=== PATIENT | female | born 2000 | race Caucasian/White ===

== ENCOUNTER 2018-10-11 20:31 | Emergency (ER) | payer OTHER ==
[2018-10-11 21:34] LABS: BILIRUBIN,URINE NEGATIVE (NEGATIVE); GLUCOSE, URINE (UA) NEGATIVE (NEGATIVE); KETONES,URINE (UA) NEGATIVE (NEGATIVE); LEUKOCYTE ESTERASE, URINE SMALL (NEGATIVE); NITRITE,URINE NEGATIVE (NEGATIVE); OCCULT BLOOD,URINE TRACE-INTA (NEGATIVE); PH,URINE 8.5 PH (5.0-7.5); PROTEIN,URINE NEGATIVE (NEGATIVE); UROBILINOGEN,URINE 0.2 (NORMAL) E.U./dL (NORMAL)
[2018-10-11 21:42] LABS: BACTERIA,URINE Many /HPF (None Seen); CLARITY,URINE CLOUDY (CLEAR); RBC,URINE 0-5 /HPF (0-5); SQUAMOUS EPITHELIAL CELL,UR FEW Squamous (<= Few)
[2018-10-11 21:43] LABS: AMORPHOUS SEDIMENT,UR Moderate /LPF
[2018-10-11 22:10] VITALS: BP 123/75
--- NOTE | 2018-10-11 22:10 | ED Physician Documentation ---
PD HPI FEMALE - Stated complaint Stated Complaint: UTI - Chief complaint Chief Complaint: UTI - History obtained from History obtained from: Patient - History of Present Illness Timing - onset: How many days ago (2) Timing - duration: Days (2) Timing - details: Gradual onset, Still present Associated symptoms: Fever (felt mild feverish), Dysuria, Urinary frequency. No: Vaginal discharge, Genital sore/lesion Contributing factors: No: Exposed to STD Similar symptoms before: Diagnosis (UTI) Recently seen: Not recently seen Review of Systems Constitutional: reports: Fever. denies: Myalgias Nose: denies: Rhinorrhea / runny nose, Congestion Throat: denies: Sore throat Respiratory: denies: Cough : reports: Dysuria, Frequency. 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 : None HEENT: None Psych: None Musculoskeletal: None Derm: None - Past Surgical History Past Surgical History: No - Present Medications Home Medications: Ambulatory Orders Medication Instructions Recorded Confirmed Medroxyprogesterone Acetate 150 mg IM ONCE 10/11/18 10/11/18 [Depo-Provera] Phenazopyridine HCl [Pyridium] 200 mg PO TID PRN #6 tablet 10/11/18 Pnv No.122/Iron/Folic Acid 1 each PO DAILY 10/11/18 10/11/18 [ Multi Tablet] Sulfamethox/Trimeth 800/160 1 each PO BID #10 tablet 10/11/18 [Bactrim Ds 800/160] - Allergies Allergies/Adverse Reactions: Allergies Allergy/AdvReac Type Severity Reaction Status Date / Time No Known Drug Allergies Allergy Verified 10/11/18 22:10 - Social History Does the pt smoke?: Yes Smoking Status: Current every day smoker Does the pt drink ETOH?: No Does the pt have substance abuse?: No - Immunizations Immunizations are current?: Yes PD ED PE NORMAL - Vitals Vital signs reviewed: Yes - General General: Alert and oriented X 3, No acute distress, Well developed/nourished - Abdomen Abdomen: Soft, Non tender - Female Female : Deferred - Back Back: No CVA TTP - Derm Derm: Normal color, Warm and dry - Neuro Neuro: Alert and oriented X 3, No motor deficit, Normal speech Results - Vitals Vitals: Oxygen O2 Source Room air - Labs Labs: Microbiology 10/11/18 20:35 Urine Culture - Preliminary Urine,Clean Catch Escherichia Coli Laboratory Tests 10/11/18 20:35 Urine Color YELLOW Urine Clarity CLOUDY Urine pH 8.5 H Ur Specific [place] 1.015 Urine Protein NEGATIVE Urine Glucose (UA) NEGATIVE Urine Ketones NEGATIVE Urine Occult Blood TRACE-INTA Urine Nitrite NEGATIVE Urine Bilirubin NEGATIVE Urine Urobilinogen 0.2 (NORMAL) Ur Leukocyte Esterase SMALL H Urine RBC 0-5 Urine WBC 11-25 H Ur Squamous Epith Cells FEW Squamous Amorphous Sediment Moderate Urine Bacteria Many H Ur Microscopic Review INDICATED Urine Culture Comments INDICATED PD MEDICAL DECISION MAKING - ED course Complexity details: considered differential (UTI symptoms and denies vaginal discharge. UA is positive enough to correlate with symptoms. ), d/w patient Departure - Departure Disposition: Home, Self Care Clinical Impression: Urinary tract infection Qualifiers: Urinary tract infection type: acute cystitis Hematuria presence: without hematuria Qualified Code(s): N30.00 - Acute cystitis without hematuria Condition: Stable Record reviewed to determine appropriate education?: Yes Instructions: ED UTI Cystitis Female Follow-Up: GENE RODRIGUEZ [Primary Care Provider] - Prescriptions: Phenazopyridine HCl [Pyridium] 200 mg PO TID PRN #6 tablet PRN Reason: dysuria Sulfamethox/Trimeth 800/160 [Bactrim Ds 800/160] 1 each PO BID #10 tablet Comments: Stay well-hydrated. Ibuprofen or Tylenol as needed for pains. Phenazopyridine can help with the urinary discomfort. It will turn your urine orange colored so not to worry. Bactrim antibiotic twice daily for 5 days is typically adequate timing for clearing of bladder infection. Recheck if not improved over the next few days. Discharge Date/Time: 10/11/18 22:37
[2018-10-11] MEDS ORDERED: PHENAZOPYRIDINE 100 MG TABLET PO STA (22:23)
[2018-10-11] MEDS ORDERED: SULFAMETH/TRIMETH DS 800/160 MG TABLET PO STA (22:23)
== END 2018-10-11 22:37 | disposition home or self-care (01) ==
LOC: ED 20:31
DX: N30.00 Acute cystitis without hematuria (principal); F17.200 Nicotine dependence, unspecified, uncomplicated
CPT/HCPCS: 81001; 87086; 87181; 99283; A9270; 81003

== ENCOUNTER 2022-04-14 22:19 | Emergency (ER) | payer OTHER ==
--- NOTE | 2022-04-14 22:53 | ED Physician Documentation ---
History of Present Illness - Stated complaint Stated Complaint: CHEST PX,BLOOD IN STOOL - Chief complaint Chief Complaint: Cardiac - History obtained from History obtained from: Patient - History of Present Illness Timing: Yesterday - Additonal information Additional information: 21-year-old female presents for several complaints. Patient complains of episode of bright red blood in her stool yesterday, fatigue, headache, and chest pain. Patient states that her only complaint today is the chest pain. Pain is sharp, suprasternal, intermittent, associated sharp pain in her left forearm. When she first felt the pain she went to go lay down and felt fatigued with a low-grade throbbing headache. All other symptoms resolved, however the chest pain persisted, prompting her visit to the ER. Patient does state that she has a history of hemorrhoids. Bowel movement today was normal. Review of Systems Ten Systems: 10 systems reviewed and negative Constitutional: reports: Fatigue. denies: Fever, Chills Cardiac: reports: Chest pain / pressure. denies: Palpitations Respiratory: denies: Dyspnea, Cough GI: reports: Bloody / black stool. 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 : None HEENT: None Psych: Anxiety Musculoskeletal: None Derm: None - Past Surgical History Past Surgical History: Yes - Allergies Allergies/Adverse Reactions: Allergies Allergy/AdvReac Type Severity Reaction Status Date / Time No Known Drug Allergies Allergy Verified 04/14/22 22:31 - Social History Does the pt smoke?: Yes Smoking Status: Current every day smoker Does the pt drink ETOH?: No Does the pt have substance abuse?: No - Immunizations Immunizations are current?: Yes PD ED PE NORMAL - Vitals Vital signs reviewed: Yes - General General: Alert and oriented X 3, No acute distress, Well developed/nourished - HEENT HEENT: Atraumatic, PERRL, EOMI, Ears normal, Moist mucous membranes - Neck Neck: Supple, no meningeal sign, No bony TTP, No adenopathy - Cardiac Cardiac: RRR, No gallop, No rub, Strong equal pulses - Respiratory Respiratory: No respiratory distress, Clear bilaterally - Abdomen Abdomen: Soft, Non tender, Non distended, No organomegaly - Female Female : Deferred - Rectal Rectal: Other (shrimp header present. 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, No motor deficit, No sensory deficit, Normal speech - Psych Psych: Normal mood, Normal affect Results - Vitals Vitals: Vital Signs - 24 hr 04/14/22 04/14/22 22:25 23:49 Temperature 36.3 C L Heart Rate 92 61 Respiratory 18 18 Rate Blood Pressure 122/68 113/56 L O2 Saturation 99 97 Oxygen O2 Source Room air - EKG (time done) 2226 Rate: Rate (enter#) (94) Rhythm: NSR, Wide complex tachycardia Intervals: Normal ME QRS: Normal Ischemia: Normal ST segments - Labs Labs: Laboratory Tests 04/14/22 04/14/22 23:05 23:05 WBC 6.8 RBC 4.19 L Hgb 13.0 Hct 38.4 MCV 91.6 MCH 31.0 MCHC 33.9 RDW 11.9 L Plt Count 290 MPV 9.7 Neut # (Auto) 4.1 Lymph # (Auto) 1.7 [place] # (Auto) 0.7 Eos # (Auto) 0.2 Baso # (Auto) 0.0 Absolute Nucleated RBC 0.00 Nucleated RBC % 0.0 Sodium 138 Potassium 3.8 Chloride 105 Carbon Dioxide 24 Anion Gap 9.0 BUN 18 Creatinine 0.8 Estimated GFR (MDRD) 89 Glucose 96 Calcium 9.0 Total Bilirubin 0.6 AST 16 ALT 14 Alkaline Phosphatase 47 Total Protein 7.1 Albumin 4.1 Globulin 3.0 Albumin/Globulin Ratio 1.4 PD MEDICAL DECISION MAKING - ED course ED course: Patient with numerous various symptoms. Currently only endorsing chest pain. EKG and troponin negative. Chest x-ray unremarkable. Patient reports episode of blood in stool, does have hemorrhoids. Abdomen soft, no reproducible TTP. Blood count within normal limits. No further episodes of bleeding since yesterday, stool is back to normal per pt and she is not on any blood thinners. Patient was informed of her results, counseled PCP follow-up. Counseled Tylenol and Motrin as needed for chest pains. Departure - Departure Disposition: 01 Home, Self Care Clinical Impression: Chest pain Qualifiers: Chest pain type: unspecified Qualified Code(s): R07.9 - Chest pain, unspecified Hemorrhoid Qualifiers: Hemorrhoid type: first degree Qualified Code(s): K64.0 - First degree hemorrhoids Fatigue Qualifiers: Fatigue type: other Qualified Code(s): R53.83 - Other fatigue Instructions: ED Chest Pain NonCardiac, ED Hemorrhoids Comments: I do not know the cause of your symptoms today. Your blood count is normal, your EKG is normal, your chest x-ray shows no evidence of pneumonia or other heart problems. Take Tylenol and Motrin as needed for pain or discomfort. Drink plenty of fluids, get plenty of rest. Follow-up with your primary care physician if your symptoms continue. Discharge Date/Time: 04/14/22 23:54
[2022-04-14 23:10] LABS: BASOPHILS % (AUTO) 0.6 %; EOSINOPHILS # (AUTO) 0.2 10^3/uL (0.0-0.7); EOSINOPHILS % (AUTO) 2.5 %; HCT - HEMATOCRIT 38.4 % (37.0-47.0); LYMPHOCYTES # (AUTO) 1.7 10^3/uL (1.5-3.5); MEAN CORPUSCULAR HGB CONC 33.9 g/dL (32.0-36.0); MEAN CORPUSCULAR VOLUME 91.6 fL (81.0-99.0); MEAN PLATELET VOLUME 9.7 fL (7.9-10.8); MONOCYTES # (AUTO) 0.7 10^3/uL (0.0-1.0); MONOCYTES % (AUTO) 10.8 %; NEUTROPHILS # (AUTO) 4.1 10^3/uL (1.5-6.6); NEUTROPHILS % (AUTO) 60.8 %; PLT - PLATELET COUNT 290 10^3/uL (130-450); RED BLOOD COUNT 4.19 10^6/uL (4.20-5.40); RED CELL DISTRIBUTION WIDTH 11.9 % (12.0-15.0); WHITE BLOOD COUNT 6.8 x10^3/uL (4.8-10.8)
[2022-04-14 23:22] LABS: ALBUMIN 4.1 g/dL (3.2-5.5); ALBUMIN/GLOBULIN RATIO 1.4 (1.0-2.2); BILIRUBIN,TOTAL 0.6 mg/dL (0.2-1.0); CREATININE 0.8 mg/dL (0.4-1.0); POTASSIUM 3.8 mmol/L (3.5-5.0); TOTAL PROTEIN 7.1 g/dL (6.7-8.2)
--- NOTE | 2022-04-14 23:40 | XRAY Report ---
PROCEDURE: Chest 1 View X-Ray INDICATIONS: CP TECHNIQUE: One view of the chest was acquired. COMPARISON: None. FINDINGS: Surgical changes and devices: None. Lungs and pleura: No pleural effusions or pneumothorax. Lungs are clear. Mediastinum: Mediastinal contours appear normal. Heart size is normal. Bones and chest wall: No suspicious bony lesions. Overlying soft tissues appear unremarkable. IMPRESSION: No acute cardiopulmonary process demonstrated radiographically. Reviewed by: Jerson Mcclain MD on 04/14/2022 11:38 PM PDT Approved by: Jerson Mcclain MD on 04/14/2022 11:38 PM PDT Station ID: [id number]
[2022-04-14 23:50] VITALS: BP 113/56
== END 2022-04-14 23:54 | disposition home or self-care (01) ==
LOC: ED 22:19
DX: K64.0 First degree hemorrhoids (principal); R53.83 Other fatigue; R07.9 Chest pain, unspecified; F17.200 Nicotine dependence, unspecified, uncomplicated
CPT/HCPCS: 36415; 80053; 85025; 93005; 99282; 99284

== ENCOUNTER 2024-01-05 14:38 | Outpatient (CLI) | payer OTHER ==
[2024-01-05 15:16] LABS: BASOPHILS # (AUTO) 0.1 10^3/uL (0.0-0.1); BASOPHILS % (AUTO) 0.5 %; EOSINOPHILS # (AUTO) 0.2 10^3/uL (0.0-0.7); EOSINOPHILS % (AUTO) 1.5 %; HCT - HEMATOCRIT 38.5 % (37.0-47.0); HGB - HEMOGLOBIN 12.5 g/dL (12.0-16.0); LYMPHOCYTES # (AUTO) 2.7 10^3/uL (1.5-3.5); LYMPHOCYTES % (AUTO) 24.2 %; MEAN CORPUSCULAR HEMOGLOBIN 30.3 pg (27.0-31.0); MEAN CORPUSCULAR HGB CONC 32.5 g/dL (32.0-36.0); MEAN CORPUSCULAR VOLUME 93.4 fL (81.0-99.0); MONOCYTES # (AUTO) 0.9 10^3/uL (0.0-1.0); MONOCYTES % (AUTO) 8.5 %; NEUTROPHILS # (AUTO) 7.1 10^3/uL (1.5-6.6); PLT - PLATELET COUNT 303 10^3/uL (130-450); RED BLOOD COUNT 4.12 10^6/uL (4.20-5.40); RED CELL DISTRIBUTION WIDTH 12.2 % (12.0-15.0); WHITE BLOOD COUNT 10.9 x10^3/uL (4.8-10.8)
[2024-01-06 04:09] LABS: HBsAG SCREEN Negative (Negative)
[2024-01-06 06:11] LABS: HIV SCREEN 4TH GENERATION Non Reactive (Non Reactive); RPR Non Reactive (Non Reactive)
[2024-01-06 12:09] LABS: VARICELLA-ZOSTER AB IGG 427 index (Immune >165)
[2024-01-08 00:08] LABS: HCV AB Non Reactive (Non Reactive)
== END 2024-01-05 14:39 | disposition home or self-care (01) ==
LOC: LAB 14:38
PROVIDERS: ATTEND Nurse Practitioner
DX: Z34.00 Encounter for supervision of normal first pregnancy, unspecified trimester (principal); Z36.89 Encounter for other specified antenatal screening
CPT/HCPCS: 36415; 84702; 85025; 86592; 86762; 86787; 86803; 86850; 86900; 86901; 87340; 87389

== ENCOUNTER 2024-01-06 08:00 | Outpatient (CLI) | payer OTHER ==
[2024-01-06 08:40] LABS: BILIRUBIN,URINE NEGATIVE (NEGATIVE); CLARITY,URINE CLEAR (CLEAR); GLUCOSE, URINE (UA) NEGATIVE (NEGATIVE); KETONES,URINE (UA) NEGATIVE (NEGATIVE); LEUKOCYTE ESTERASE, URINE NEGATIVE (NEGATIVE); NITRITE,URINE NEGATIVE (NEGATIVE); OCCULT BLOOD,URINE NEGATIVE (NEGATIVE); PROTEIN,URINE NEGATIVE (NEGATIVE); UROBILINOGEN,URINE 0.2 (NORMAL) E.U./dL (NORMAL)
[2024-01-06 09:19] LABS: WBC,URINE 0-3 /HPF (0-5)
[2024-01-06 09:20] LABS: BACTERIA,URINE Few /HPF (None Seen); RBC,URINE 0-5 /HPF (0-5); SQUAMOUS EPITHELIAL CELL,UR FEW Squamous (<= Few)
== END 2024-01-06 23:59 | disposition home or self-care (01) ==
LOC: LAB.WC 08:00
PROVIDERS: ATTEND Nurse Practitioner
DX: Z34.00 Encounter for supervision of normal first pregnancy, unspecified trimester (principal)
CPT/HCPCS: 81001; 87086

== ENCOUNTER 2024-01-06 14:13 | Outpatient (CLI) | payer OTHER ==
--- NOTE | 2024-01-06 16:55 | Ultrasound Report ---
PROCEDURE: OB 1st Trimester w/TV INDICATIONS: POSITIVE TEST OUTSIDE/PRIOR DATING DATA: Last menstrual period (LMP): 11/20/2023. LMP-based estimated date of delivery (VIKI): 08/26/2024. First dating scan (date and location): 01/06/2024. Estimated date of delivery (VIKI) from first dating scan: 09/02/2024. TECHNIQUE: Real-time scanning was performed of the fetus and maternal pelvic organs, with image documentation. Endovaginal scanning was also performed to better visualize the fetus and maternal ovaries. COMPARISON: None. FINDINGS: Yolk sac present. Embryo: 0.21 cm, 5 weeks 5 days Heart rate: 155 bpm. Other: No perigestational fluid collection. Measurement variability in dating: +/- 4 weeks by LMP, +/- 7 days by mean sac diameter (use before 6 weeks gestation if crown-rump length not able to be measured), +/- 5 days by crown-rump length (6-12 weeks gestation). Maternal organs: Ovaries appear within normal limits. There is a right ovarian corpus luteal cyst me asuring 1.8 x 2.0 x 1.6 cm. IMPRESSION: Very early intrauterine with crown-rump length and heartbeat measuring 5 weeks days. Reviewed by: Garcia Phan MD on 01/06/2024 4:54 PM PDT Approved by: Garcia Phan MD on 01/06/2024 4:54 PM PDT Station ID: [id number]
== END 2024-01-06 14:14 | disposition home or self-care (01) ==
LOC: DI 14:13
PROVIDERS: ATTEND Nurse Practitioner
DX: Z34.01 Encounter for supervision of normal first pregnancy, first trimester (principal)

== ENCOUNTER 2024-09-07 04:08 | Inpatient (IN) ==
[2024-09-07] MEDS ORDERED: LACTATED RINGERS 1,000 ML ONE (04:26)
[2024-09-07] MEDS ORDERED: lidocaine 1% 20 ML MDV ID PRN (04:33)
[2024-09-07] MEDS ORDERED: miSOPROStoL 200 MCG TABLET BC PRN (04:33)
[2024-09-07] MEDS ORDERED: miSOPROStoL 200 MCG TABLET PR PRN (04:33)
[2024-09-07] MEDS ORDERED: LABETALOL 20 MG/4 ML SYRINGE IVP PRN ×5 (04:33→13:41)
[2024-09-07] MEDS ORDERED: hydrALAZINE INJ 20 MG/ML VIAL IVP PRN ×3 (04:33→13:41)
[2024-09-07] MEDS ORDERED: fentaNYL 100 MCG/2 ML VIAL IVP PRN (04:33)
[2024-09-07] MEDS ORDERED: SODIUM CHLORIDE FLUSH 0.9% 10 ML SYRINGE IVP PRN (04:33)
[2024-09-07] MEDS ORDERED: OXYTOCIN 10 UNIT/ML VIAL IM PRN (04:33)
[2024-09-07] MEDS ORDERED: TRANEXAMIC ACID IN NACL 1,000 MG/100 ML BAG IV PRN (04:33)
[2024-09-07] MEDS ORDERED: TERBUTALINE 1 MG/ML VIAL SUBQ PRN (04:33)
[2024-09-07] MEDS ORDERED: METHYLERGONOVINE 0.2 MG/ML VIAL IM PRN (04:33)
[2024-09-07] MEDS ORDERED: ONDANSETRON 4 MG/2 ML VIAL IVP PRN ×2 (04:33→06:15)
[2024-09-07] MEDS ORDERED: NIFEdipine 10 MG CAPSULE PO PRN ×2 (04:33→13:41)
[2024-09-07] MEDS ORDERED: fentaNYL 100 MCG/2 ML VIAL ONE (04:38)
[2024-09-07] MEDS: LACTATED RINGERS 500 ML IV ONE (04:40)
[2024-09-07] MEDS: fentaNYL 100 MCG/2 ML VIAL IVP PRN (04:40)
[2024-09-07] MEDS: LACTATED RINGERS 1,000 ML IV PRN (04:40)
[2024-09-07 04:51] LABS: BASOPHILS % (AUTO) 0.2 %; EOSINOPHILS % (AUTO) 0.1 %; HCT - HEMATOCRIT 38.3 % (37.0-47.0); HGB - HEMOGLOBIN 12.8 g/dL (12.0-16.0); LYMPHOCYTES # (AUTO) 1.4 10^3/uL (1.5-3.5); LYMPHOCYTES % (AUTO) 8.5 %; MEAN CORPUSCULAR HEMOGLOBIN 31.1 pg (27.0-31.0); MEAN CORPUSCULAR HGB CONC 33.4 g/dL (32.0-36.0); MEAN CORPUSCULAR VOLUME 93.2 fL (81.0-99.0); MEAN PLATELET VOLUME 10.9 fL (7.9-10.8); MONOCYTES % (AUTO) 6.1 %; NEUTROPHILS # (AUTO) 13.8 10^3/uL (1.5-6.6); NEUTROPHILS % (AUTO) 84.4 %; PLT - PLATELET COUNT 210 10^3/uL (130-450); RED BLOOD COUNT 4.11 10^6/uL (4.20-5.40); RED CELL DISTRIBUTION WIDTH 12.7 % (12.0-15.0); WHITE BLOOD COUNT 16.3 x10^3/uL (4.8-10.8)
--- NOTE | 2024-09-07 04:58 | HISTORY & PHYSICAL EXAMINATION ---
Admit History Visit Reason Visit Reason: Contractions : 1 Parity: 0 Premature: 0 Ectopic: 0 : 0 Care: positive [facility] (Initiated at 9wks) Risk/History: positive None Complications This : positive None Smoking Status: Former smoker Mother's Labs Mother's Blood Type: positive O Mother's RH: positive Negative GBS: positive Group B Step Negative Rubella Status: positive Immune Other Maternal History Other Maternal History: 23YO @ 40wks 5 day by 9wk US presents for evaluation of labor. IOL was scheduled at [facility] for today and a Ling balloon was placed in a 2cm cervix last night, then drained and removed at 9pm when her IOL was cancelled. Contractions persisted becoming strong around midnight. Now breathing through strong contractions every 2-3 minutes. No vaginal bleeding or leaking of fluid. Uncomplicated care with CNMs. Desires low intervention , planning an epidural. is present and supportive. Meds/Allgy Home Medications Ambulatory Orders Medication Instructions Recorded Confirmed aspirin 81 mg capsule 81 mg PO DAILY 09/07/24 09/07/24 Allergies Allergies Allergy/AdvReac Type Severity Reaction Status Date / Time No Known Drug Allergies Allergy Verified 04/14/22 22:31 [facility] Medical History Medical History Anemia Family History Family History (Updated 09/07/24 @ 05:03 by Nella Chery DNP) Mother High blood pressure Social History Social History Smoking Status: Unknown if ever smoked If you are a former smoker, when did you quit? (Date/Year): 12/23/2023 Do you vape?: No POLST Patient has POLST: No Review of Systems Status of ROS: 10 or more systems reviewed and unremarkable except as noted in history and below Physical Abdominal Exam Vital Signs: BP 131/74, HR 87, T 36.3C Contraction Frequency (min/apart): 2-4 Contraction Intensity: positive Moderate Uterine Resting Tone: positive Soft Monitoring Heart Rate Baseline: 145 Strip Review: positive Category I Presentation Presentation: positive Vertex Vaginal Exam Membranes: positive Membranes intact Dilation (in cm): 4 Effacement (%): 90 Station: positive -1 Cervical Position: positive Posterior Plan for Labor Plan For Labor I expect patient to be DC'd or transferred within 96 hours.: Yes Plan for Labor: Admit, routine labor orders. Epidural upon request. Reassess in 4 hours or sooner, PRN. Conclusion/Plan Problem List (1) Supervision of normal first in third trimester: Plan: Term nullipara Active labor No indication for GBS prophylaxis RH negative status Cat I FHR Plan Admit, routine labor orders. Epidural upon request. Reassess in 4 hours or sooner, PRN. Lab Results 09/07/24 04:27 09/07/24 04:27
[2024-09-07] MEDS ORDERED: LIDOCAINE 2%-EPI 1:100000 20 ML MDV ONE (04:59)
[2024-09-07] MEDS ORDERED: ROPIVACAINE 0.2% 200 MG/100 ML BAG EP ONE (04:59)
[2024-09-07] MEDS ORDERED: SODIUM CHLORIDE FLUSH 0.9% 10 ML SYRINGE IVP SCH (05:00)
[2024-09-07 05:06] LABS: ALBUMIN 3.5 g/dL (3.2-5.5); ALBUMIN/GLOBULIN RATIO 1.1 (1.0-2.2); BILIRUBIN,TOTAL 0.3 mg/dL (0.2-1.0); CALCIUM 8.5 mg/dL (8.5-10.3); CREATININE 0.7 mg/dL (0.6-1.3); POTASSIUM 3.7 mmol/L (3.5-4.5); TOTAL PROTEIN 6.6 g/dL (6.4-8.9)
[2024-09-07] MEDS ORDERED: ePHEDrine 50 MG/ML VIAL IVP ONE (05:33)
--- NOTE | 2024-09-07 06:12 | ANESTHESIA PROCEDURE NOTE ---
Pre-Anesthesia VS, & Labs Diagnosis Surgical Diagnosis:: IOL, 40/5 Procedure Procedure: labor epidural Vitals Vital Signs: Temp Pulse Resp BP 36.3 C L 84 16 131/74 H 09/07/24 04:28 09/07/24 04:28 09/07/24 04:28 09/07/24 04:28 Height (in): 5 ft 4 in Weight (kg): 95 kg Body Mass Index: 35.9 BMI Classification: Obese NPO NPO: Other (clears only now) Is Patient ?: Yes Lab Results Current Lab Results: Laboratory Tests 09/07/24 04:27: WBC 16.3 H, RBC 4.11 L, Hgb 12.8, Hct 38.3, MCV 93.2, MCH 31.1 H , MCHC 33.4, RDW 12.7, Plt Count 210, MPV 10.9 H, Neut # (Auto) 13.8 H, Lymph # (Auto) 1.4 L, [place] # (Auto) 1.0, Eos # (Auto) 0.0, Baso # (Auto) 0.0, Absolute Nucleated RBC 0.00, Nucleated RBC % 0.0, Sodium 131 L, Potassium 3.7, Chloride 102, Carbon Dioxide 21, Anion Gap 8.0, BUN 11, Creatinine 0.7, Estimated GFR (MDRD) 102, Glucose 110 H, Calcium 8.5, Total Bilirubin 0.3, AST 16, ALT 12, A lkaline Phosphatase 125 H, Total Protein 6.6, Albumin 3.5, Globulin 3.1, Albumin/Globulin Ratio 1.1, Blood Type O NEGATIVE, Antibody Screen NEGATIVE Lab results reviewed: Yes 09/07/24 04:27 09/07/24 04:27 Meds/Allgy Home Medications Ambulatory Orders Medication Instructions Recorded Confirmed aspirin 81 mg capsule 81 mg PO DAILY 09/07/24 09/07/24 Allergies Allergies Allergy/AdvReac Type Severity Reaction Status Date / Time No Known Drug Allergies Allergy Verified 04/14/22 22:31 [facility] Medical History Medical History Anemia Family History Family History (Updated 09/07/24 @ 05:03 by Nella Chery DNP) Mother High blood pressure Social History Social History Smoking Status: Unknown if ever smoked If you are a former smoker, when did you quit? (Date/Year): 12/23/2023 Do you vape?: No POLST Patient has POLST: No Anesthesia Exam (Expanded) Exam General: Alert Dental: WNL (braces) Mouth Openin Fingerbreadth Neck Mobility: Normal Mallampati classification: II Thyromental Distance: 4-6 cm Respiratory: Lungs clear Cardiovascular: Regular rate Plan Problem List (1) Supervision of normal first in third trimester: Plan: Term nullipara Active labor No indication for GBS prophylaxis RH negative status Cat I FHR Plan Admit, routine labor orders. Epidural upon request. Reassess in 4 hours or sooner, PRN. Plan Anesthesia Type: Epidural Consent for Procedure(s) Verified and Reviewed: Yes Code Status: Attempt Resuscitation ASA Classification ASA classification: 2-Mild systemic disease Is this case an emergency?: No
[2024-09-07] MEDS ORDERED: ePHEDrine 50 MG/ML VIAL IVP PRN (06:15)
[2024-09-07] MEDS ORDERED: METOCLOPRAMIDE 10 MG/2 ML VIAL IVP PRN (06:15)
[2024-09-07] MEDS ORDERED: diphenhydrAMINE INJ 50 MG/ML VIAL IVP PRN (06:15)
[2024-09-07] MEDS ORDERED: NALBUPHINE 10 MG/ML AMP IVP PRN (06:15)
[2024-09-07] MEDS ORDERED: ROPIVACAINE 0.2% 200 MG/100 ML BAG EP PRN (06:15)
[2024-09-07] MEDS ORDERED: NALOXONE 0.4 MG/ML VIAL IVP PRN ×2 (06:15→13:41)
--- NOTE | 2024-09-07 08:32 | PROVIDER PROGRESS NOTE ---
Labor Progress Note Uterine Monitoring Uterine Monitoring Mode: positive External toco Contraction Frequency (min/apart): 4-5 Contraction Intensity: positive Strong Uterine Resting Tone: positive Soft Monitoring Monitor Mode: positive External ultrasound Heart Rate Baseline: 140 Heart Rate Variability: positive Moderate (6-25 bmp) Accelerations: positive Present, 15x15 Decelerations: positive None Strip Review: positive Category I Vaginal Exam Dilation (in cm): 8 Effacement (%): 100 Station: -1 Cervical Position: Midposition Labor Progress Note Labor Progress Note/Additional Text: S: Laboring comfortably with an epidural, feeling occasional rectal pressure. O: VS: BP 102/66, HR 107, Temp not repeated since afebrile on admission and above A: Term nullipara Active labor Cat I FHR P: Anticipate second stage soon. Reassess in 4 hours or sooner, PRN.
[2024-09-07] MEDS: CALCIUM CARBONATE CHEW 500 MG TABLET PO PRN (08:43)
[2024-09-07] MEDS: LACTATED RINGERS 1,000 ML IV SCH (11:00)
[2024-09-07] MEDS: OXYTOCIN/SODIUM CHLORIDE 500 ML IV PRN (13:00)
--- NOTE | 2024-09-07 13:11 | PHARMACY PROGRESS NOTE ---
Best Possible Medication History Admit Date and Time: 09/07/24 0810 Home Medications Medication Instructions Recorded Confirmed Type aspirin 81 mg capsule 81 mg PO DAILY 09/07/24 09/07/24 History omeprazole 20 mg capsule,delayed 20 mg PO DAILY 09/07/24 09/07/24 History release vit no.95-ferrous 1 tab PO QPM 09/07/24 09/07/24 History fumarate 28 mg-folic acid 800 mcg tablet ( Multivitamins) Processed by: Pharmacy (Medication Reconciliation completed by Cloth Washer OperatorRenetta) Medications reviewed in ED?: No Medication History completed: Yes Patient Interview: Completed Secondary Source(s): Insurance records [facility] Statement: As the person ultimately responsible for medication therapy, providers are able to order a medication from an existing home medication list in [facility] via the "Reconcile Routine" prior to Confirmation of that medication by office support specialist. Such practice is discouraged except when the physician, in their clinical judgment, deems that a medical need exists for a medication without regard to previous use.
[2024-09-07] MEDS ORDERED: LABETALOL 5 MG/1 ML 20 ML MDV IVP PRN (13:41)
[2024-09-07] MEDS ORDERED: SIMETHICONE CHEW 80 MG TABLET PO PRN (13:41)
[2024-09-07] MEDS ORDERED: OXYTOCIN/SODIUM CHLORIDE 500 ML IV PRN (13:41)
--- NOTE | 2024-09-07 14:08 | DELIVERY NOTE ---
Delivery Note Labor Labor: positive Augmented by ARM Delivery Method Delivery Method: positive Spontaneous vaginal delivery Cervical Ripening Method Cervical Ripening Method: positive Balloon device Presentation Presentation: positive Vertex and EVERARDO - left occiput anterior Nuchal Cord Nuchal Cord: positive None Amniotic Fluid Description Amniotic Fluid Description: positive Clear Laceration Laceration: positive 1st degree and Vaginal Suture Suture Type: positive Chromic (3.0) Delivery Outcome Delivery Date: 09/07/24 Delivery Time: 12:55 Delivery Outcome: positive [place] : positive Placed in direct skin contact with mother, Warmed and [place] used sex: positive Female Cord Cord: positive 3 vessels Placenta Placenta: positive Intact and Spontaneous Estimated Blood Loss Estimated Blood Loss (in cc): 50 Post Delivery Events Post Delivery Events: positive No post delivery events Delivery Comments (Free Text/Narrative) Delivery Comments (Free Text/Narrative): Ling balloon was placed in outpatient clinic for planned elective IOL at [facility]. When [facility] went on divert, IOL was canceled and Ling balloon was discontinued. Regular contractions persisted and progressed to active labor. Upon arrival to [facility], FHR was reassuring, active labor was diagnosed and patient requested an epidural. Adequate epidural anesthesia throughout labor with Cat I FHR via continuous EFM. AROM for clear fluid, total ROM 1hr 35 minutes. Cassandra was feeling a lot of rectal pressure and was coached to push past an anterior lip. Strong maternal efforts led to a short second stage and NSVB of a vigorous baby girl. There was no nuchal cord and the shoulders delivered easily. was placed on maternal abdomen for drying and skin to skin. IV pitocin was started for AMTSL. After cessation of pulsation, the cord was double clamped by CNM and cut by FOB. Cod blood sample was collected. Gentle cord traction and a single maternal push led to spontaneous, Schultze delivery of an apparently intact placenta, membranes and 3VC. Fundus immediately firm and bleeding was scant. Inspection of the vagina and perineum revealed a 1st degree vaginal laceration which was repaired with 3.0 Chromic in the usual fashion under adequate epidural anesthesia. QBL 50mL. Both mother and baby stable and skin to skin as I left [facility] room.
[2024-09-07] MEDS: KETOROLAC 30 MG/ML VIAL IVP SCH (14:18)
[2024-09-07] MEDS: DOCUSATE SODIUM 100 MG CAPSULE PO SCH (21:10)
[2024-09-07] MEDS: ACETAMINOPHEN 500 MG TABLET PO PRN (21:10)
[2024-09-08] MEDS: IBUPROFEN 600 MG TABLET PO PRN (07:55)
--- NOTE | 2024-09-08 10:31 | PROVIDER PROGRESS NOTE ---
Current Medications Current Medications Current Medications: Current Medications Generic Name Dose Route Start Last Admin Trade Name Freq PRN Reason Stop Dose Admin Acetaminophen 1,000 mg 09/07/24 13:41 09/08/24 07:55 Acetaminophen 500 Mg Tablet PO 1,000 mg Q8HR PRN Administration Mild Pain or Fever>38C(100.4F) Calcium Carbonate/Glycine 500 mg 09/07/24 04:38 09/07/24 13:29 Calcium Carbonate Chew 500 Mg Tablet PO 500 mg Q4HR PRN Administration heartburn Diphenhydramine HCl 12.5 - 25 mg 09/07/24 06:15 Diphenhydramine Inj 50 Mg/Ml Vial IVP Q6HR PRN ITCHING Docusate Sodium 100 mg 09/07/24 21:00 09/08/24 07:56 Docusate Sodium 100 Mg Capsule PO 100 mg BID IRENA Administration Ephedrine Sulfate 5 mg 09/07/24 06:15 Ephedrine 50 Mg/Ml Vial IVP Q5M PRN For SBP<100;give until SBP>100 Fentanyl 50 mcg 09/07/24 04:33 Fentanyl 100 Mcg/2 Ml Vial IVP Q1H PRN Severe Pain (score 7-10) Fentanyl 100 mcg 09/07/24 04:39 09/07/24 04:40 Fentanyl 100 Mcg/2 Ml Vial IVP 100 mcg Q1HR PRN Administration Severe Pain (Level 7-10) Hydralazine HCl 10 mg 09/07/24 13:41 Hydralazine Inj 20 Mg/Ml Vial IVP .ONCE PRN SBP> or= 160 OR DBP> or= 110 Protocol Hydralazine HCl 5 - 10 mg 09/07/24 13:41 Hydralazine Inj 20 Mg/Ml Vial IVP Q20M PRN SBP >=160 and/or DBP >=110 Protocol Lactated Ringer's 500 mls @ 999 mls/hr 09/07/24 04:33 09/07/24 04:40 Lr IV 999 mls/hr PRN PRN Administration epidural Oxytocin/Sodium Chloride 500 mls @ 999 mls/hr 09/07/24 04:33 09/07/24 13:00 Pitocin/Sodium Chloride IV 250 milliunit/min PRN PRN 250 mls/hr POST- HEMORR PREVENTION Administration Protocol 999 MILLIUNIT/MIN Tranexamic Acid 1,000 mg in 100 mls @ 600 mls/hr 09/07/24 04:33 Tranexamic 1,000 Mg/100ml-Nacl IV Q30M PRN EBL >1200mL and within 3hr Ropivacaine 200 mg in 100 mls @ 0 mls/hr 09/07/24 06:15 Naropin 0.2% EP PRN PRN PAIN Protocol Per Protocol Lactated Ringer's 1,000 mls @ 125 mls/hr 09/07/24 08:00 09/07/24 14:00 Lr IV 0 mls/hr .Q8H IRENA Infusion Oxytocin/Sodium Chloride 500 mls @ 999 mls/hr 09/07/24 13:41 Pitocin/Sodium Chloride IV PRN PRN POST- HEMORR PREVENTION Protocol 999 MILLIUNIT/MIN Ibuprofen 600 mg 09/07/24 13:41 09/08/24 07:55 Ibuprofen 600 Mg Tablet PO 600 mg Q6HR PRN Administration Moderate Pain (Level 4-6) Ketorolac Tromethamine 30 mg 09/07/24 14:00 09/07/24 14:18 Ketorolac 30 Mg/Ml Vial IVP 09/12/24 13:59 30 mg ONCE IRENA Administration Labetalol HCl 20 - 80 mg 09/07/24 13:41 Labetalol 5 Mg/1 Ml 20 Ml Mdv IVP Q10M PRN SBP> or= 160 OR DBP> or= 110 Protocol Labetalol HCl 20 - 40 mg 09/07/24 13:41 Labetalol 20 Mg/4 Ml Syringe IVP Q10M PRN SBP> or= 160 OR DBP> or= 110 Protocol Labetalol HCl 20 mg 09/07/24 13:41 Labetalol 20 Mg/4 Ml Syringe IVP .ONCE PRN SBP >=160 and/or DBP >=110 Protocol Lidocaine HCl 20 ml 09/07/24 04:33 Lidocaine 1% 20 Ml Mdv ID 09/10/24 04:33 .ONCE PRN PERINEAL REPAIR Methylergonovine Maleate 0.2 mg 09/07/24 04:33 Methylergonovine 0.2 Mg/Ml Vial IM .ONCE PRN Hemorrhage Metoclopramide HCl 10 mg 09/07/24 06:15 Metoclopramide 10 Mg/2 Ml Vial IVP Q6HR PRN Nausea / Vomiting Misoprostol 600 mcg 09/07/24 04:33 Misoprostol 200 Mcg Tablet BC .ONCE PRN Hemorrhage Misoprostol 800 mcg 09/07/24 04:33 Misoprostol 200 Mcg Tablet [place] .ONCE PRN Hemorrhage Nalbuphine HCl 2.5 - 5 mg 09/07/24 06:15 Nalbuphine 10 Mg/Ml Amp IVP Q4H PRN ITCHING Naloxone HCl 0.1 mg 09/07/24 06:15 Naloxone 0.4 Mg/Ml Vial IVP Q2M PRN RR<8 Naloxone HCl 0.4 mg 09/07/24 13:41 Naloxone 0.4 Mg/Ml Vial IVP .ONCE PRN Opioid Overdose Nifedipine 10 - 20 mg 09/07/24 13:41 Nifedipine 10 Mg Capsule PO Q20M PRN SBP >=160 and/or DBP >=110 Protocol Ondansetron HCl 4 mg 09/07/24 04:33 Ondansetron 4 Mg/2 Ml Vial IVP Q4HR PRN Nausea / Vomiting Ondansetron HCl 4 mg 09/07/24 06:15 Ondansetron 4 Mg/2 Ml Vial IVP Q6HR PRN Nausea / Vomiting Oxytocin 10 unit 09/07/24 04:33 Oxytocin 10 Unit/Ml Vial IM .ONCE PRN Step One if no IV access. Simethicone 80 mg 09/07/24 13:41 Simethicone Chew 80 Mg Tablet PO TID PRN Gas Sodium Chloride 10 ml 09/07/24 04:33 Sodium Chloride Flush 0.9% 10 Ml Syringe IVP PRN PRN NEEDED PER PROVIDER ORDERS Sodium Chloride 10 ml 09/07/24 05:00 Sodium Chloride Flush 0.9% 10 Ml Syringe IVP Q8H [facility] Terbutaline Sulfate 0.25 mg 09/07/24 04:33 Terbutaline 1 Mg/Ml Vial SUBQ .ONCE PRN Tachystole Objective Vital Signs/Intake & Output Vital Signs: Vital Signs x48h Temp Pulse Resp BP O2 Flow Rate 09/08/24 09:00 36.2 C L 76 107/66 09/08/24 05:00 36.9 C 80 18 120/74 96 Intake & Output: Intake & Output 09/05/24 09/06/24 09/07/24 09/08/24 23:59 23:59 23:59 23:59 Intake Total 1375 / 1375 Output Total 2850 / 2850 Balance -1475 / -1475 Weight (kg) 95 kg Lab Results 09/07/24 04:27 09/07/24 04:27 Assessment/Plan Problem List (1) Supervision of normal first in third trimester: Impression: S: Bonding well with baby. without difficulty however experiencing some anxiety surrounding her ability to get baby latched but feeling better after guidance from nursing staff and our discussion today. Bleeding decreased and is light. Pain is well controlled with oral medications. She is urinating without difficulty. Has not yet had BM. is supportive at the bedside. They desire to stay another night for additional support. O: Heart RRR w/o M/G/R, lungs CTAB, abdomen soft and nontender with fundus firm at U, perineum intact, light lochia rubra, bilateral LE's trace edema A: 23yo -->P1 PPD#1 s/p TSVD viable female Normal recovery P: Continue routine care and medications. Evaluate for discharge home tomorrow
[2024-09-09 03:49] VITALS: TEMP 98.1; O2SAT 100
[2024-09-09 10:57] VITALS: BP 130/83
[2024-09-09] MEDS: RHO(D) IMMUNE GLOBULIN 300 MCG SYRINGE IM ONE (13:09)
--- NOTE | 2024-09-09 13:46 | Discharge Summary ---
Discharge Summary HOSPITAL COURSE Hospital Course: Date of Admission: 09/07/2024 Date of Discharge: 09/09/2024 Diagnosis on Admission: 1. Term nullipara 2. Active labor 3. No indication for GBS prophylaxis 4. RH negative status 5. Cat I FHR Diagnosis on Discharge: 1. 23yo PPD#2 s/p TSVD viable female infant 2. 3. S/p Rhogam administration 4. Normal recovery Brief History: She is a patient of [facility] who presented on 09/07/2024 in active labor. Cervix was and vertex with intact membranes. __Epidural was placed per maternal request. AROM occurred for a moderate amount of clear fluid. She spontaneously progressed to deliver a viable female infant on 09/07/2024 @ 1255. Perineum was noted to have a 1st degree laceration which was repaired using a 3-[address]-1 needle in standard fashion and under sterile conditions. Apgars were 9/9 at 1 and 5 minutes respectively. QBL 50 mL. She has been doing well in her course. She is ambulating and tolerating a regular diet. She is urinating without difficulty and her lochia is normal. Her pain is well controlled with oral medications. She will be discharged home today on day #1 with instructions to continue taking her vitamin while and to continue taking Ibuprofen and Tylenol over the counter as needed for pain management. She has received Rhogam prior discharge. She intends to follow up with [facility] in 2 weeks for routine visit or sooner if needed. She has been given precautions to call if she has any worsening fevers, chills, abdominal pain, increased vaginal bleeding or foul smelling vaginal lochia. Physical Exam: Normocephalic, atraumatic. Heart RRR w/o M/G/R, lungs CTAB, abdomen soft and nontender with fundus firm at U, perineum intact, light lochia rubra, bilateral LE's no edema. Mood is good. ALLERGIES Allergies Allergy/AdvReac Type Severity Reaction Status Date / Time No Known Drug Allergies Allergy Verified 04/14/22 22:31 MEDICATIONS Ambulatory Orders Medication Instructions Recorded Confirmed aspirin 81 mg capsule 81 mg PO DAILY 09/07/24 09/07/24 omeprazole 20 mg capsule,delayed 20 mg PO DAILY 09/07/24 09/07/24 release vit no.95-ferrous 1 tab PO QPM 09/07/24 09/07/24 fumarate 28 mg-folic acid 800 mcg tablet ( Multivitamins) LABS 09/07/24 04:27 09/07/24 04:27 Discharge Plan Discharge Patient Disposition: Home, Self Care Prescriptions: Continued aspirin 81 mg capsule 81 mg PO DAILY Patient Comments: Was taking PM, has stopped recently. omeprazole 20 mg capsule,delayed release(DR/EC) 20 mg PO DAILY Patient Comments: Patient unsure of dose, taking in AM PNV cmb#95-ferrous fumarate-FA [ Multivitamins] 28 mg iron- 800 mcg tablet 1 tab PO QPM Print Language: Mohawk Patient Instructions: Vaginal After
--- NOTE | 2024-09-09 15:30 | Labor Flowsheet ---
Labor Flowsheet Datetime Report Generated by CPN: 09/09/2024 15:29 Datetime: 09/07/2024 15:30 Stage of : Recovery VITAL SIGNS NBP Sys/Lottie/Mean (mmHg): 102 : 57 : 67 Pulse: 78 Datetime: 09/07/2024 13:20 Vital Sign Comments: PT shaking, BP inaccurate Datetime: 09/07/2024 12:55 UTERINE ACTIVITY Monitor Mode: External Monitor Interventions for UA: [place] Adjusted Frequency (min): 2-3 Quality: Strong Duration (sec): 50-70 Pattern: Normal: <= 5 Contractions in 10 Minutes Resting Tone (Palpate): Relaxed ASSESSMENT A Monitor Mode: External US FHR Baseline Rate : 140 Variability: Moderate 6-25 bpm Accelerations: 15X15 Decelerations: Early Datetime: 09/07/2024 12:41 Membranes Ruptured Date/Time: 09/07/2024 11:20 MEDICATIONS Cervical Ripening Agents: Ling Balloon Datetime: 09/07/2024 12:39 SpO2 (%): 99 LaborFlag: Labor Datetime: 09/07/2024 12:29 Contraction Comments: Pt start pushing at 1225 Datetime: 09/07/2024 12:19 VAGINAL EXAM Dilatation (cm): 9.5 Effacement (%): 100 Station: 0 Datetime: 09/07/2024 11:20 Membranes Rupture Method: Artificial Amniotic Fluid Color: Clear Amniotic Fluid Amount: Moderate Amniotic Fluid Odor: Normal Datetime: 09/07/2024 11:17 PATIENT CARE Patient Position/Activity: High Fowlers Patient Care Comments: peanut ball under right knee Datetime: 09/07/2024 11:16 COMMUNICATION Communication: RN at Bedside; Provider at Bedside Datetime: 09/07/2024 08:16 Exam by: CNM Datetime: 09/07/2024 07:29 Monitor Interventions for FHR: Ultrasound Adjusted Datetime: 09/07/2024 07:10 Provider Notified (Name): Report given from S.Garcia RN Datetime: 09/07/2024 07:00 Comments: minimal variability with period of moderate Datetime: 09/07/2024 06:23 Anesthesia Level Check: T10- Umbilicus Datetime: 09/07/2024 06:06 Hygiene: [place]dee Care; Underpad Changed I/O Interventions: Ling Cath Inserted Datetime: 09/07/2024 06:00 FHR Baseline Changes: No Baseline Change Actions for Decelerations: IV Bolus Datetime: 09/07/2024 05:22 ANESTHESIA Anesthesia Plans: Epidural Epidural Procedure: Test Dose Datetime: 09/07/2024 05:17 Anesthesia Comments: epidural placement started Datetime: 09/07/2024 04:58 PROCEDURE TIME OUT Procedure Verify: Correct Patient Identity; Correct Side and Site are Marked; Accurate Procedure Co nsent Form; Agreement on Procedure to be Done; Correct Patient Position; Relevant Images and Results are Properly Labeled and Displayed; Addressed Need to Administer Antibiotics or Fluids for Irrigation ; Safety Precautions Based on Patient History or Medication Use Epidural Positioning: Sitting Datetime: 09/07/2024 04:15 Communication Comments: Nella Vik CNM
== END 2024-09-09 13:30 | disposition home or self-care (01) | DRG 807 ==
LOC: WFO 04:08 → FBP 04:10
PROVIDERS: ADMIT Obstetrics & Gynecology; ATTEND Obstetrics & Gynecology